=== PATIENT | female | born 2000 | race Caucasian/White ===

== ENCOUNTER 2024-03-28 09:58 | Emergency (ER) | payer OTHER, SELFPAY ==
[2024-03-28 10:06] VITALS: BP 134/86; PULSE 108; RESP 12; TEMP 36.7; O2SAT 96
--- NOTE | 2024-03-28 10:15 | RT.EKG_ITS ---
APPROVED REPORT Exam: Resting ECG Reason for Exam: tachycardia Patient Location: E HR:92 bpm ECG Measurements Heart Rate 92 AXIS [place] 161 P 27 QRSd 85 QRS 48 QT 353 T 3 QTc 436 Conclusion Sinus rhythm...normal P axis, V-rate 60- 99 Narrow complex normal sinus rhythm at a rate of 60. Normal axis. First-degree AV block [place] interval 2 3 ms. QTc within normal limits. No ST segment abnormalities. No T wave versions. No acute injur y pattern. No prior for comparison.
--- NOTE | 2024-03-28 10:16 | ED.GENADUL_ITS ---
Discharge Plan Disposition Patient Disposition: Home Condition: Stable Discharge Details Clinical Impression: Hyperglycemia Primary Care Provider: None,None ED Provider: Martinez Trejo Home Meds and New Rx's Prescriptions: New liraglutide 0.6 mg/0.1 mL (18 mg/3 mL) pen injector See Rx Instructions .ROUTE .COMPLEX Qty: 9 0RF Rx Instructions: inject 0.6mg subcutaneously once daily x 7 days; then 1.2mg daily, not to exceed 1.8mg/day No Action dextroamphetamine-amphetamine [Adderall] 30 mg tablet 30 mg PO BID Rx Instructions: administer doses at least 4-6 hours apart liraglutide [Victoza 3-Missael] 0.6 mg/0.1 mL (18 mg/3 mL) pen injector See Rx Instructions subcut .COMPLEX 30 Days Qty: 9 4RF Rx Instructions: inject 0.6mg subcutaneously once daily x 7 days; then 1.2mg daily for one week, if sugars still elevated increased on week three to 1.8mg/day subcut Discharge Instructions Instructions: Liraglutide, High Blood Sugar, Adult ED Additional Instructions: You were seen in the emergency department for elevated blood sugar readings as you have run out of your liraglutide. I have refilled this prescription and sent it to your pharmacy. I have referred you to establish PCP care, please take your medicine as prescribed and return to the ED for any worrying high blood sugar readings especially with symptoms of nausea, jitters, confusion, abnormal respirations or heart rate, fever, vomiting. HPI General Date/Time Provider Initiated Documentation: 03/28/24 10:16 . HPI Narrative: 23 year-old female presents to ED today by POV/ambulating with a chief complaint of elevated blood glucose readings at UC visit, just moved to the area and has run out of her Victoza, does not have PCP established yet. Quality described as feels nauseous and overheated, no radiation to cough, shortness of breath, chest pain, dizziness, vomiting. Severity is described as moderate. Palliating factors include nothing specific attempted. Provoking factors include nothing specific. Events leading up to the incident/Associated Symptoms: Patient states her blood glucose has never been this high before. Patient not anticoagulated. Related Data Home Medications ?Medication ?Instructions ?Recorded ?Confirmed dextroamphetamine-amphetamine 30 30 mg PO BID 03/28/24 03/28/24 mg tablet (Adderall) liraglutide 0.6 mg/0.1 mL (18 mg/3 See Rx Instructions subcut 03/28/24 mL) subcutaneous pen injector .COMPLEX #9 mL liraglutide 0.6 mg/0.1 mL (18 mg/3 See Rx Instructions subcut 03/28/24 03/28/24 mL) subcutaneous pen injector .COMPLEX 1 month #9 mL (Victoza 3-Missael) Previous Rx's ?Medication ?Instructions ?Recorded liraglutide 0.6 mg/0.1 mL (18 mg/3 See Rx Instructions subcut 03/28/24 mL) subcutaneous pen injector .COMPLEX #9 mL liraglutide 0.6 mg/0.1 mL (18 mg/3 See Rx Instructions subcut 03/28/24 mL) subcutaneous pen injector .COMPLEX 1 month #9 mL (Victoza 3-Missael) Allergies Allergy/AdvReac Type Severity Reaction Status Date / Time No Known Allergies Allergy Verified 03/28/24 10:11 General Stated Complaint: Diabetes LIZA: 3 Review of Systems All systems reviewed & are unremarkable except as noted in HPI and below Exam Narrative Exam Narrative: GENERAL APPEARANCE: Well-nourished, non-toxic, awake and alert, atraumatic, no acute distress. SKIN: Warm, pink, dry, intact, without rashes/lesions/ulcerations. HEAD: Normocephalic, atraumatic, normal hair distribution for gender/age. EYES: Normal conjunctiva, no exudates on lids/lashes. ENT: Nares patent, no circumoral cyanosis, no facial swelling NECK: Supple, trachea midline, painless cervical ROM. LUNGS/CHEST: Lungs CTA bilaterally, non-labored respirations, normal A/P diameter, symmetrical expansion, no chest wall deformity HEART (CV/PV): Regular rate and rhythm without murmur, no peripheral edema, no JVD. ABDOMEN: Soft, non-distended, no guarding. MSK: Normal ROM, no swelling/deformity to bilateral UEs or LEs, moving all extremities without weakness, no cyanosis, spine midline without tenderness, normal curvature. NEURO: Mental Status AAOx4 - alert to person, place, time, events No facial droop, no forehead involvement. Motor: No focal weakness - strength 5/5 in bilateral UEs and LEs, proximal and distal, symmetric. Sensory: sensation intact to light touch globally. Gait normal: patient ambulated without ataxia into ED room. PSYCH: euthymic, cooperative, pleasant, appropriate speech Course Vital Signs Vital signs: Vital Signs Temperature 36.7 C 03/28/24 10:06 Pulse 108 H 03/28/24 10:06 Respiratory Rate 12 03/28/24 10:06 Blood Pressure 134/86 03/28/24 10:06 Pulse Oximetry 96 03/28/24 10:06 Temperature 36.7 C 03/28/24 10:06 Temperature Source Oral 03/28/24 10:06 Pulse 108 H 03/28/24 10:06 Respiratory Rate 12 03/28/24 10:06 Respiratory Effort Normal, Non-Labored 03/28/24 10:11 Blood Pressure 134/86 03/28/24 10:06 Pulse Oximetry 96 03/28/24 10:06 Oxygen Delivery Method Room Air 03/28/24 10:06 Oxygen Flow Rate 0 03/28/24 10:06 Pain Level 0 03/28/24 10:06 Medical Decision Making This dictation utilizes [id number] dictation software and may contain unedited grammatical errors. 23 year-old female presents to ED today by POV/ambulating with a chief complaint of elevated blood glucose readings at UC visit, just moved to the area and has run out of her Victoza, does not have PCP established yet. Quality described as feels nauseous and overheated, no radiation to cough, shortness of breath, chest pain, dizziness, vomiting. Severity is described as moderate. Palliating factors include nothing specific attempted. Provoking factors include nothing specific. Events leading up to the incident/Associated Symptoms: Patient states her blood glucose has never been this high before. Patients' medical history: T2DM. Family and social history: Noncontributory. Pertinent exam findings / vital signs include benign abdomen, mild tachycardia that improved with rest, benign cardiac exam, benign pulmonary exam, neuro intact. Differential / pathologies of concern include medication nonadherence, hyperglycemia, diabetic ketoacidosis, renal failure, electrolyte abnormality, arrhythmia. Diagnostic studies of: -CBC, CMP, magnesium, lactate, VBG, urinalysis, EKG. -VBG shows normal pH, no DKA -CBC benign -urinalysis shows glucose spilling -magesnium WNL -CMP shows elev bili, non-specific -EKG without abberancy or patterns of electrolyte disturbance Interventions of: -2L IVF, repeat fingerstick. -Outpatient Rx for her victoza and referred to establish PCP ED Course/Assessment/Plan: 23-year-old female has been out of her liraglutide for 10 days, having elevated blood sugar readings, found to not be in diabetic ketoacidosis, blood sugar improving with IV fluids, refilled prescription, arrange for PCP follow-up by referral list. Findings not consistent with diabetic ketoacidosis, arrhythmia, electrolyte abnormality, renal failure. Disposition of Hyperglycemia. Patient verbalized understanding of the plan and return to ED criteria and engaged in shared decision making. Medical Records Medical records reviewed: Yes I reviewed the patient's medical records. Lab Data Lab results reviewed: Yes I reviewed the patient's lab results. Labs: Laboratory Tests Range/Units 03/28/24 03/28/24 10:02 10:56 WBC (4.4-10.8) 10^3/uL 10.25 RBC (3.93-5.22) 10^6/uL 6.17 H Hgb (11.2-15.7) g/dL 16.0 H Hct (36.0-46.0) % 49.8 H MCV (80-95) fL 81 MCH (27.0-33.0) pg 25.9 L MCHC (32.0-36.0) % 32.1 RDW (11.7-14.6) % 12.8 Plt Count (130-400) 10^3/uL 306 MPV (8.0-11.0) fL 10.1 Immature Gran % % 0.3 Neutrophils % % 69.7 Lymphocytes % % 24.1 Monocytes % % 4.6 Eosinophils % % 0.6 Basophils % % 0.7 Nucleated RBC % (0.0-0.3) % 0.0 Absolute Neutrophils (1.2-6.7) 10^3/uL 7.15 H Absolute Lymphocytes (1.2-3.4) 10^3/uL 2.47 Absolute Monocytes (0.1-0.8) 10^3/uL 0.47 Absolute Eosinophils (0.0-0.7) 10^3/uL 0.06 Absolute Basophils (0.0-0.2) 10^3/uL 0.07 RBC Morphology Normal VBG pH (7.31-7.41) 7.39 VBG pCO2 (41-51) mmHg 46 VBG pO2 mmHg 32 VBG HCO3 (23-28) mmol/L 28 VBG Total CO2 (24-29) mmol/L 24 VBG O2 Saturation % 61 VBG Base Excess (-2-3) mmol/L 3 VBG Lactate (0.6-1.4) mmol/L 1.6 H Sodium (136-145) mmol/L 136 Potassium (3.5-5.1) mmol/L 3.9 Chloride (98-107) mmol/L 98 Carbon Dioxide (21.0-32.0) mmol/L 26.8 Anion Gap (3-11) mmol/L 11.2 H BUN (7-18) mg/dL 15 Creatinine (0.55-1.02) mg/dL 0.8 Est GFR (CKD-EPI 2020) (mL/min/1.73m2) 105.45 Glucose (74-106) mg/dL 255 H Calcium (8.5-10.1) mg/dL 9.2 Magnesium (1.8-2.4) mg/dL 1.8 Total Bilirubin (0.2-1.0) mg/dL 1.58 H AST (15-37) U/L 24 ALT (14-59) U/L 36 Alkaline Phosphatase (46-116) U/L 105 Total Protein (6.4-8.2) g/dL 8.3 H Albumin (3.4-5.0) g/dL 3.7 Urine Color (Yellow) Yellow Urine Clarity (Clear) Sl Cloudy Urine pH (5-8) 5.0 Ur Specific [place] (1.005-1.025) 1.025 Urine Protein (Neg-Trace) mg/dL 30 H Urine Ketones (Negative) mg/dL 15 H Urine Blood (Negative) Negative Urine Nitrite (Negative) Negative Urine Bilirubin (Negative) Negative Urine Urobilinogen (Up to 0.2) mg/dL 0.2 Ur Leukocyte Esterase (Negative) Negative Urine RBC (0-2) HPF 0-2 Urine WBC (0-5) HPF 0-2 Ur Epithelial Cells (Negative) HPF Few Urine Crystals (Negative) HPF Rare Uric Acid Urine Bacteria (Negative) HPF Few Urine Casts (Negative) LPF 0-2 Fine Granular Urine Mucus (Negative) Negative Ur Culture Indicated? No Urine Glucose (Negative) mg/dL [address] Cons Comment SEE COMMENT Quality:SDOH Health Related Social Needs: No Data to Display PFSH All Active Problems (Updated 03/28/24 @ 11:27 by CRIS Meeks) Hyperglycemia (Acute) Social History Smoking/Tobacco Use Status: Never Smoking risk assessment performed?: Yes Alcohol Intake: never Drug use: Never Substance use type: does not use
[2024-03-28 10:57] LABS: Bilirubin Negative (Negative); Blood Negative (Negative); Clarity Sl Cloudy (Clear); Glucose 500 mg/dL (Negative); Ketones 15 mg/dL (Negative); Leukocyte Esterase Negative (Negative); Nitrite Negative (Negative); Specific Gravity 1.025 (1.005-1.025); Urobilinogen 0.2 mg/dL (Up to 0.2)
[2024-03-28 11:03] LABS: BE (Venous) 3 mmol/L (-2-3); HCO3 (Venous) 28 mmol/L (23-28); Lactate 1.6 mmol/L (0.6-1.4); O2 Sat (Venous) 61 %; TCO2 (Venous) 24 mmol/L (24-29); pCO2 (Venous) 46 mmHg (41-51); pH (Venous) 7.39 (7.31-7.41); pO2 (Venous) 32 mmHg
[2024-03-28 11:04] LABS: Bacteria Few HPF (Negative); C & S Indicated? No; Casts 0-2 Fine Granular LPF (Negative); Crystals Rare Uric Acid HPF (Negative); Epithelial Cells Few HPF (Negative); Mucus Negative (Negative); RBC 0-2 HPF (0-2); WBC 0-2 HPF (0-5)
[2024-03-28 11:07] LABS: Abs Immature Grans 0.03 10^3/uL (0.0-0.06); Absolute Basophil Count 0.07 10^3/uL (0.0-0.2); Absolute Eosinophil Count 0.06 10^3/uL (0.0-0.7); Absolute Lymphocyte Count 2.47 10^3/uL (1.2-3.4); Absolute Monocyte Count 0.47 10^3/uL (0.1-0.8); Absolute Neutrophil Count 7.15 10^3/uL (1.2-6.7); Basophils % 0.7 %; Eosinophils % 0.6 %; HCT 49.8 % (36.0-46.0); Immature Grans % 0.3 %; Lymphocytes % 24.1 %; MCH 25.9 pg (27.0-33.0); MCHC 32.1 % (32.0-36.0); MCV 81 fL (80-95); MPV 10.1 fL (8.0-11.0); Monocytes % 4.6 %; Neutrophils % 69.7 %; Platelet Count 306 10^3/uL (130-400); RBC 6.17 10^6/uL (3.93-5.22); RDW 12.8 % (11.7-14.6); RDW-SD 37.3 fL; WBC 10.25 10^3/uL (4.4-10.8)
[2024-03-28] MEDS: Ondansetron 4 MG/2 ML VIAL IVP (11:08)
[2024-03-28] MEDS: Normal Saline 1,000 ML 1000 ML IV ×2 (11:08→11:30)
[2024-03-28 11:21] LABS: ALT 36 U/L (14-59); AST 24 U/L (15-37); Albumin 3.7 g/dL (3.4-5.0); Alkaline Phosphatase 105 U/L (46-116); Anion Gap 11.2 mmol/L (3-11); BUN 15 mg/dL (7-18); Bilirubin, Total 1.58 mg/dL (0.2-1.0); CO2 26.8 mmol/L (21.0-32.0); CREATININE 0.8 mg/dL (0.55-1.02); Calcium 9.2 mg/dL (8.5-10.1); Chloride 98 mmol/L (98-107); Estimated GFR 105.45 (mL/min/1.73m2); Glucose 255 mg/dL (74-106); Magnesium 1.8 mg/dL (1.8-2.4); Potassium 3.9 mmol/L (3.5-5.1); Sodium 136 mmol/L (136-145); Total Protein 8.3 g/dL (6.4-8.2)
[2024-03-28 11:26] LABS: Diff Comment RBC Morph Reviewed; RBC Morphology Normal
[2024-03-28 12:11] VITALS: BP 134/86; PULSE 80; RESP 12; TEMP 36.7; O2SAT 96
== END 2024-03-28 12:21 | disposition home or self-care (01) ==
LOC: ER 11:37
PROVIDERS: Emergency Provider Physician Assistant
DX: E11.65 Type 2 diabetes mellitus with hyperglycemia (principal)
CPT/HCPCS: 80053; 82805; 82962; 93005; 96361; 96374; 99284; 81003; 81015; 83605; 83735; 85025; 93010; J2405